=== PATIENT | male | born 1975 | race Caucasian/White ===

== ENCOUNTER → 2016-10-23 | Outpatient (CLI) | payer OTHER | LOC: SLEEP 13:08 | DX: G25.81 Restless legs syndrome (principal) | CPT/HCPCS: 95810 ==

== ENCOUNTER → 2020-07-08 | Outpatient (CLI) | payer OTHER ==
[~2020-07-08] MED LIST: EXPECTORANT200 MG PO; FLONASE 0.05% N16 GM; NAPROSYN500 MG PO; OMNICEF 300 MG300 MG PO; ZOFRAN4 MG PO
[2020-07-08 08:43] LABS: HEMOGLOBIN 18.4 gm/dl (14.0-17.5); RED BLOOD COUNT 5.59 M/UL (4.20-5.50); WHITE BLOOD COUNT 7.9 K/UL (4.5-11.0)
[2020-07-08 09:24] LABS: BUN/CREATININE RATIO 6 (0-10)
== END ==
LOC: LAB 08:19
PROVIDERS: Nurse Practitioner Family
DX: I10 Essential (primary) hypertension (principal); E78.5 Hyperlipidemia, unspecified; E53.8 Deficiency of other specified B group vitamins; E55.9 Vitamin D deficiency, unspecified
CPT/HCPCS: 36415; 80053; 80061; 82570; 82607; 83036; 84156; 84439; 84443; 85025

== ENCOUNTER 2020-08-12 12:05 | Emergency (ER) | payer OTHER ==
[~2020-08-12 12:05] MED LIST changes: -ZOFRAN4 MG PO
[2020-08-12] MEDS ORDERED: ZOFRAN4 MG PO (13:40)
== END 2020-08-12 13:56 | disposition home or self-care (01) ==
LOC: ER1 12:05
DX: R11.2 Nausea with vomiting, unspecified (principal); I11.9 Hypertensive heart disease without heart failure; K21.9 Gastro-esophageal reflux disease without esophagitis; I25.2 Old myocardial infarction; F17.210 Nicotine dependence, cigarettes, uncomplicated; Z79.84 Long term (current) use of oral hypoglycemic drugs
CPT/HCPCS: 99283

== ENCOUNTER → 2021-03-05 | Outpatient (CLI) | payer OTHER ==
[~2021-03-05] MED LIST changes: +ZOFRAN4 MG PO
[2021-03-05 08:26] LABS: HEMOGLOBIN 17.7 gm/dl (14.0-17.5); RED BLOOD COUNT 5.39 M/UL (4.20-5.50); WHITE BLOOD COUNT 9.2 K/UL (4.5-11.0)
[2021-03-05 08:47] LABS: BUN/CREATININE RATIO 9 (0-10)
== END ==
LOC: LAB 08:09
PROVIDERS: Nurse Practitioner Family
DX: R73.9 Hyperglycemia, unspecified (principal); I10 Essential (primary) hypertension; E78.2 Mixed hyperlipidemia; E53.8 Deficiency of other specified B group vitamins; E55.9 Vitamin D deficiency, unspecified
CPT/HCPCS: 36415; 80053; 80061; 82607; 83036; 84439; 84443; 85025